=== PATIENT | male | born 1995 | race African-American/Black ===

== ENCOUNTER 2018-12-22 22:57 | Emergency (ER) | payer MEDICAID, OTHER ==
[~2018-12-22] VITALS: Ht 175.3 cm; Wt 68.0 kg
--- NOTE | 2018-12-22 23:10 | NUR ---
ED Nurse Note: Pt walked in c/o back pain to coccyx pain for a few hours. Pt denies trauma, heavy lifting, jerky movements. 10/10 pain; pt stated it feels like the back is tight and locking.
[2018-12-22 23:15] VITALS: BP 132/84
--- NOTE | 2018-12-22 23:23 | Emergency Room Report ---
History of Present Illness General Chief Complaint: Lower Back Pain or Injury Source: Patient Present Illness [facility] This is a 23-year-old male with no past medical history. He presents with back pain. Onset initially was 2 months ago. It came on all of a sudden. Is to the right lower back. He was walking and felt sharp pain. He felt his back locked up. It lasts for a few days and went away. It came back again today. Pain is mostly in the right lower back rating to his buttock. He felt sharp numbness to that area. Worse with certain movement. Worse with certain position. No incontinence of bowel or urine. No nausea no vomiting. No fever chills. Denies any other complaint. Pain is 8 out of 10. Allergies: Coded Allergies: No Known Allergies (Unverified , 12/22/18) Patient History Past Medical History: none, see triage record, old chart reviewed Past Surgical History: none Pertinent Family History: none Social History: Denies: smoking Immunizations: other Reviewed Nursing Documentation: PMH: Agreed; PSxH: Agreed Nursing Documentation-PMH Past Medical History: No Stated History Review of Systems Eye: Denies: eye pain, blurred vision ENT: Denies: ear pain, nose congestion, throat swelling Respiratory: Denies: cough, shortness of breath Cardiovascular: Denies: chest pain, palpitations Gastrointestinal: Denies: abdominal pain, diarrhea, nausea, vomiting Musculoskeletal: Reports: back pain; Denies: joint pain Skin: Denies: rash Neurological: Denies: headache, numbness Endocrine: Denies: increased thirst, increased urine Hematologic/Lymphatic: Denies: easy bruising All Other Systems: negative except mentioned in HPI Physical Exam Vital Signs Date Time Temp Pulse Resp B/P (MAP) Pulse Ox O2 Delivery O2 Flow Rate FiO2 12/22/18 23:06 98.2 74 16 132/84 (100) 98 Room Air Vitals normal Sp02 EP Interpretation: reviewed, normal General Appearance: well appearing, no apparent distress, alert Head: normocephalic, atraumatic Eyes: bilateral eye PERRL, bilateral eye EOMI ENT: hearing grossly normal, normal pharynx Neck: full range of motion, supple, no meningismus Respiratory: chest non-tender, lungs clear, normal breath sounds Cardiovascular #1: regular rate, rhythm, no murmur Gastrointestinal: normal bowel sounds, non tender, no mass, no organomegaly, no bruit, non-distended Musculoskeletal: back normal, gait/station normal, normal range of motion, tender - Tenderness to the right lower lumbar/sacral area. Psychiatric: mood/affect normal Medical Decision Making Diagnostic Impression: Primary Impression: Low back pain Qualified Codes: M54.5 - Low back pain ER Course Patient presents with lower back pain. No evidence of cauda equina syndrome, spinal rib abscess or neoplastic process. Will discharge home. Last Vital Signs Date Time Temp Pulse Resp B/P (MAP) Pulse Ox O2 Delivery O2 Flow Rate FiO2 12/22/18 23:06 98.2 74 16 132/84 (100) 98 Room Air Status: improved Disposition: HOME, SELF-CARE Condition: Stable Scripts Ibuprofen* (MOTRIN*) 600 Mg Tablet 600 MG ORAL THREE TIMES A DAY, #30 TAB 0 Refills Prov: Jayesh Harman MD 12/22/18 Hydrocodone/Acetaminophen 5-325* (HYDROCODONE/ACETAMINOPHEN 5-325*) 1 Each Tablet 1 TAB ORAL Q6H PRN for For Pain, #20 TAB 0 Refills Prov: Jayesh Harman MD 12/22/18 Patient Instructions: Lumbosacral Strain Additional Instructions: No heavy lifting. Lift with your legs and not with your back. Follow-up with your doctor in 7 days. If continue with pain, you may need an MRI. Return if symptoms worsen. Jayesh Harman MD Dec 22, 2018 23:23
[2018-12-22] MEDS ORDERED: IBUPROFEN600 MG ORAL (23:28)
[2018-12-22] MEDS ORDERED: HYDROCODON-ACE1 EA15 ORAL (23:28)
[2018-12-22] MEDS ORDERED: HYDROcodone/Acetamin 5/325 tab ORAL ONE (23:30)
[2018-12-22 23:47] VITALS: BP 132/84
--- NOTE | 2018-12-22 23:48 | NUR ---
ED Nurse Note: Pt cleared by health care Provider for discharge. DC instructions/prescription was given and explained to pt and verbalized understanding of teachings. All medical deviecs such as ID band removed. Pt is AAO x4, ambulatory and left with all personal belongings.
== END 2018-12-22 23:45 | disposition home or self-care (01) ==
LOC: EMR 23:20
DX: M54.5 Low back pain (principal)
CPT/HCPCS: 99282